=== PATIENT | female | born 1980 | race Caucasian/White ===

== ENCOUNTER 2018-07-22 16:44 | Inpatient (IN) | payer BC ==
[2018-07-22] MEDS ORDERED: Lidocaine 1%* 5 ML VIAL ONE (16:56)
[2018-07-22] MEDS ORDERED: Buffered Lidocaine 1% SYRIN* 1 ML/SYRINGE INTRADERM ONE (17:08)
[2018-07-22] MEDS ORDERED: Lactated Ringers 1000 ML Bag* 1,000 ML IV ONE ×2 (17:08→18:28)
--- NOTE | 2018-07-22 17:19 | HP ---
General Information - Reason for Visit Term trial of labor with her survey engineer Leona Felder CNM. According to the patient and her upper cutter machine this has been uncomplicated. She has been in spontaneous labor since yesterday early evening with SROM at 2 am today, she advanced to 9cm dilation several hours ago, no change since. Due to discomfort in labor along with protraction vs arrest disorder the patient and her upper cutter machine decided to seek care at the hospital. - General Information Maternal Age: 38 Grav: 1 Para: 0 SAB: 0 IEA: 0 Estimated Due Date: 07/30/18 Determined By: LMP Maternal Blood Type and Rh: O Positive - Results this Serology/RPR Result: Non-Reactive Rubella Result: Immune HBsAg Result: Negative HIV Result: Negative GBS Culture Result: Negative Past Medical History Delivery History: See Records Pertinent Past Medical History: See Records - No medical problems Pertinent Past Surgical History: See Records Pertinent Family History: See Records - Antepartal Records Antepartal Records: Reviewed, Uncomplicated Review of Systems Constitutional: Uncomfortable CV Complaint: No Respiratory: Shortness of Breath: No Gastrointestinal: No Nausea/Vomiting, Normal Bowel Movement Genitourinary: No Dysuria, No Bleeding Musculoskeletal: No Complaint, No Epigastric Pain, Contractions - contractions are Q 2-3 minutes apart Neurological: No Headache, No Visual Changes Movement: Normal Exam Allergies/Adverse Reactions: Allergies No Known Allergies Allergy (Verified 07/22/18 17:22) Temp 97.6 BP 136/90 P 110 RR 18 POx 100% RA - Measurements Height: 5 ft 2 in Weight: 141 lb Weight in lbs: [phone] Body Mass Index (BMI): 25.7 - Exam Breast: Breast Exam Deferred CVA: No CVA Tenderness Extremities: No Edema Heart: Normal Rhythm/Heart Sounds HEENT: No Significant Findings Lungs: Clear Bilaterally Rectal: Rectal Exam Deferred Reflexes: DTR 2+ Thyroid: No Thyromegaly - Abdominal Exam Abdomen Exam: Non-Tender, Fundal Height Consistent with Dates Targeted Exam Findings See L&D Outpatient Visit Provider Note for Findings: N/A Cervical Exam: Rim, Anterior Lip Effacement: Thin Station: 0 Presenting Part: Vertex - Asynclitic presentation towards maternal left side, moderate to large caput noted. Membrane Status: SROM Bleeding/Discharge: None EFM Findings - External Monitor Findings Baseline Heart Rate: 140 External Monitor Findings: Accelerations Present, No Pattern of Variable or Late Decelerations Contractions: Regular Assessment/Plan - Assessment Term in labor with cephalic asynclitic presentation and caput. - Plan Plan: IV Hydration, Admit - Anticipate Vaginal Delivery - epidural analgesia desired by patient. - Date/Time of Admission Date of Admission: 07/22/18 Time of Admission: 17:30
[2018-07-22 17:23] LABS: Hematocrit 36 % (35-47); Mean Corpuscular HGB Conc 34 g/dL (31-36); Mean Corpuscular Hemoglobin 27 pg (27-31); Mean Corpuscular Volume 80 fL (80-97); Mean Platelet Volume 7.2 fL (7.4-10.4); Platelet Count 499 10^3/uL (150-450); Red Blood Count 4.46 10^6 /uL (3.70-4.87); Red Cell Distribution Width 14 % (10-15); White Blood Count 34.6 10^3/uL (3.5-10.8)
[2018-07-22] MEDS ORDERED: OBEPIDURAL* 250 ML EPIDURAL ONE (17:41)
[2018-07-22 17:54] LABS: ABS Lymphocytes 0.8 10^3/ul (1.0-4.8); ABS Monocytes 1.6 10^3/ul (0-0.8); ABS Neutrophils 32.1 10^3/ul (1.5-7.7); Lymphocyte % 2.3 %
[2018-07-22] MEDS ORDERED: Lactated Ringers 1000 ML Bag* 1,000 ML IV SCH ×2 (18:00→19:00)
[2018-07-22] MEDS ORDERED: Famotidine TAB* 20 MG PO PRN (18:28)
[2018-07-22] MEDS ORDERED: Sodium Citrate/Citric Acid* 15 ML UDC PO PRN (18:28)
[2018-07-22] MEDS ORDERED: Phenylephrine 40 MCG/ML SYRINGE IV PUSH PRN ×2 (18:28)
[2018-07-22] MEDS ORDERED: OBEPIDURAL* 250 ML EPIDURAL SCH (19:00)
[2018-07-22] MEDS ORDERED: Oxytocin in LR* 20 UNITS/1,000 ML BAG IVPB ONE (20:05)
[2018-07-22] MEDS ORDERED: Oxytocin in LR* 20 UNITS/1,000 ML BAG IVPB SCH (21:00)
[2018-07-23] MEDS ORDERED: ceFOXitin 2 GM IVPREMIX* 2 GM/50 ML BAG ONE (07:16)
[2018-07-23] MEDS ORDERED: ceFOXitin 2 GM IVPREMIX* 2 GM/50 ML BAG IVPB ONE (07:19)
[2018-07-23] MEDS ORDERED: Morphine PF AMP (0.5MG/ML)* 5 MG/10 ML AMP ONE (07:31)
[2018-07-23] MEDS ORDERED: fentaNYL* 50 MCG/ML 2 ML VIAL (100 MCG VIAL) ONE (07:31)
[2018-07-23] MEDS ORDERED: Ondansetron INJ* 2 MG/ML VIAL ONE (07:36)
[2018-07-23] MEDS ORDERED: Phenylephrine 40 MCG/ML SYRINGE ONE ×2 (07:37→08:37)
[2018-07-23] MEDS ORDERED: OXYTOCIN* 10 UNITS/ML 1 ML VIAL ONE (08:17)
[2018-07-23] MEDS ORDERED: Nalbuphine* 10 MG/ML 1 ML VIAL IV PRN (08:28)
[2018-07-23] MEDS ORDERED: Naloxone* 0.4 MG/ML 1 ML VIAL IV PRN ×2 (08:28→08:30)
[2018-07-23] MEDS ORDERED: Naloxone* 2 MG in NS 0.9% 250 ML* 250 ML IV PRN (08:28)
[2018-07-23] MEDS ORDERED: Ketorolac INJ* 30 MG/ML 1 ML VIAL IV PRN (08:28)
[2018-07-23] MEDS ORDERED: Metoclopramide IV* 5 MG/ML 2 ML VIAL IV PRN (08:28)
[2018-07-23] MEDS ORDERED: oxyCODONE TAB* 5 MG TAB PO PRN ×2 (08:28→08:30)
[2018-07-23] MEDS ORDERED: Ondansetron INJ* 2 MG/ML VIAL IV PRN (08:28)
[2018-07-23] MEDS ORDERED: Acetaminophen TAB* 325 MG PO PRN ×2 (08:28→08:30)
[2018-07-23] MEDS ORDERED: fentaNYL* 50 MCG/ML 2 ML VIAL (100 MCG VIAL) IV PRN (08:30)
[2018-07-23] MEDS ORDERED: oxyCODONE/Acetamin 5/325 MG* TAB PO PRN ×2 (09:08)
[2018-07-23] MEDS ORDERED: Glycerin ADULT SUPP PR PRN (09:08)
[2018-07-23] MEDS ORDERED: Witch Hazel PAD* JAR TOPICAL PRN (09:08)
[2018-07-23] MEDS ORDERED: Zolpidem TAB* 5 MG PO PRN (09:08)
[2018-07-23] MEDS ORDERED: Lactated Ringers 1000 ML Bag* 1,000 ML IV SCH (10:00)
[2018-07-23] MEDS: Simethicone TAB* 80 MG TAB.CHEW PO SCH ×3 (16:27→20:41)
[2018-07-23] MEDS: Docusate CAP* 100 MG PO SCH (16:27)
[2018-07-23] MEDS: Dibucaine 1% 28.35 GM TUBE PR PRN (17:09)
[2018-07-24] MEDS: Docusate CAP* 100 MG PO SCH ×4 (03:19→20:50)
[2018-07-24] MEDS: Acetaminophen TAB* 325 MG PO PRN ×4 (06:08→19:45)
[2018-07-24 07:15] LABS: ABS Lymphocytes 1.5 10^3/ul (1.0-4.8); ABS Monocytes 1.4 10^3/ul (0-0.8); Hematocrit 24 % (35-47); Hemoglobin 8.1 g/dL (12.0-16.0); Lymphocyte % 7.1 %; Mean Corpuscular HGB Conc 33 g/dL (31-36); Mean Corpuscular Hemoglobin 27 pg (27-31); Mean Corpuscular Volume 81 fL (80-97); Mean Platelet Volume 7.2 fL (7.4-10.4); Platelet Count 332 10^3/uL (150-450); Red Blood Count 3.03 10^6 /uL (3.70-4.87); Red Cell Distribution Width 14 % (10-15); White Blood Count 20.9 10^3/uL (3.5-10.8)
[2018-07-24] MEDS: Ferrous Gluconate TAB* 324 MG TAB PO SCH ×2 (08:08→20:50)
[2018-07-24] MEDS: Simethicone TAB* 80 MG TAB.CHEW PO SCH ×4 (08:08→22:40)
--- NOTE | 2018-07-24 11:10 | OP ---
OPERATIVE REPORT: DATE OF OPERATION: 07/23/18 DATE OF : 76 SURGEON: Hema Vann MD. CARE MGR: Dr. Black. ANESTHESIA: Spinal. PRE-OP DIAGNOSIS: at 39 weeks with arrest of descent in labor. POST-OP DIAGNOSIS: at 39 weeks with arrest of descent in labor. OPERATIVE PROCEDURE: Primary low transverse section. ESTIMATED BLOOD LOSS: 600 cc. SPECIMENS SENT TO PATHOLOGY: Cord blood. FLUIDS: She received 1000 cc of IV crystalloid fluid. URINE OUTPUT: 100 cc of clear urine. FINDINGS: Delivery of a viable female infant in transverse arrest with a weight of 7 pounds 6 ounces with Apgars of 9 and 9. The placenta was grossly intact with a 3- vessel cord noted. The uterus, a dnexa, bowel, and bladder were all within normal limits and there were no complications. DESCRIPTION OF PROCEDURE: The patient was taken to the operating room, where she was identified. Kuldeep juarez was placed on the operating table where a spinal anesthetic was obtained without difficulty. She w as placed in a supine position with a leftward tilt, prepped and draped in a normal sterile fashion. A Pfannenstiel skin incision was made with a knife and carried through to the underlying layer of fa scia. The fascia was then nicked in the midline and extended laterally with curved Davenport scissors. T he fascia was then grasped superiorly and inferiorly with Daniel clamps and dissected off sharply fro m the rectus muscle. The rectus muscle was in the midline bluntly. The peritoneum was kailey ntified, grasped with pickups, and entered sharply with Metzenbaum scissors and extended superiorly a nd inferiorly sharply. A bladder blade was inserted into the patient's abdomen and bladder flap was created using Metzenbaum scissors, over which the bladder blade was then reinserted. A low transvers e uterine incision was made with a knife, extended laterally with bandage scissors. The 's hea d was then grasped and delivered atraumatically. The rest of the 's body was then delivered. The cord was clamped and cut and the infant was handed off to awaiting interactive digital media specialist. Cord bloods were obtained. The placenta was removed manually. The uterus was then exteriorized and cleared of all c lot and debris using moist laparotomy sponges. The uterine incision was then closed using 0 Polysorb suture in a running locked fashion with a second imbricating layer of 0 Polysorb suture with good hem ostasis noted. At this point, the uterus was returned to the patient's abdomen. The gutters were th en cleared of all clot and debris using moist laparotomy sponges. The sponges were removed from the p atient's abdomen and the peritoneum was then closed using 3-0 Polysorb suture in a running fashion. The fascia was closed using 0 Polysorb suture in a running fashion and the skin was closed with 4-0 M onocryl subcuticular stitch. The patient tolerated the procedure well. Sponge, lap and needle count s were correct x2. She was then transferred to the recovery room area in stable condition. [id number]/[facility] #: [id number]
[2018-07-24] MEDS: Dibucaine 1% 28.35 GM TUBE PR PRN (19:46)
[2018-07-24] MEDS: Ibuprofen TAB* 600 MG PO PRN (21:32)
[2018-07-25] MEDS: Acetaminophen TAB* 325 MG PO PRN ×2 (06:20→11:42)
[2018-07-25] MEDS: Simethicone TAB* 80 MG TAB.CHEW PO SCH (09:06)
[2018-07-25] MEDS: Docusate CAP* 100 MG PO SCH (09:26)
[2018-07-25] MEDS: Ferrous Gluconate TAB* 324 MG TAB PO SCH (09:27)
[2018-07-25 09:59] VITALS: BP 112/62
[2018-07-25] MEDS: Ibuprofen TAB* 600 MG PO PRN (11:42)
== END 2018-07-25 12:35 | disposition home or self-care (01) | DRG 540 ==
LOC: MCHOBOUT 16:44 → MCHOB 16:59
PROVIDERS: ADMIT Obstetrics & Gynecology; ATTEND Obstetrics & Gynecology
PROC: 4A1HXCZ Monitoring of Products of Conception, Cardiac Rate, External Approach (ICD-10-PCS; 2018-07-23)
PROC: 10D00Z1 Extraction of Products of Conception, Low, Open Approach (ICD-10-PCS; principal; 2018-07-23 07:47)
DX: O62.1 Secondary uterine inertia (principal); Z3A.39 39 weeks gestation of pregnancy; Z37.0 Single live birth; O90.81 Anemia of the puerperium
CPT/HCPCS: 36415; 85025; 86850; 86900; 86901; A9270-GY; J0694; J2300; J2405; J2590; J3010

== ENCOUNTER 2023-07-10 23:38 | Inpatient (IN) ==
[2023-07-11] MEDS ORDERED: Prochlorperazine 5 mg/ml 2 ml VIAL (10 mg) IV PRN (01:45)
[2023-07-11] MEDS ORDERED: Nalbuphine 10 MG/ML 1 ML VIAL IV PRN (01:45)
[2023-07-11] MEDS ORDERED: Lidocaine 1% VIAL 10 MG/ML 30 ML VIAL INJ PRN (01:45)
[2023-07-11] MEDS: Lactated Ringers 1000 ml BAG 1,000 ML IV ONE ×2 (01:46→12:35)
[2023-07-11] MEDS ORDERED: fentaNYL 100 mcg/2 ml 50 MCG/ML VIAL ONE ×3 (01:58→13:21)
[2023-07-11 02:04] LABS: ABS Monocytes 0.9 10^3/uL (0.0-0.9); ABS Neutrophils 12.2 10^3/uL (1.5-7.6); ABS Nucleated RBC 0.02 10^3/ul; Eosinophil % 0.2 %; Hematocrit 35.7 % (35-45); Hemoglobin 12.5 g/dL (11.5-14.3); Lymphocyte % 13.2 %; Mean Corpuscular Hemoglobin 30.3 pg (27-33); Mean Corpuscular Hgb Conc 35.1 g/dL (31-36); Mean Corpuscular Volume 86.4 fL (80-97); Mean Platelet Volume 7.3 fL (7.5-11.2); Nucleated Red Blood Cells % 0.1 %/100WBC (0.0-0.8); Platelet Count 329 10^3/uL (150-450); Red Blood Count 4.13 10^6/uL (3.63-4.92); Red Cell Distribution Width 14.4 % (12-17); White Blood Count 15.2 10^3/uL (3.8-11.8)
[2023-07-11] MEDS: OBEPIDURAL (200 ML) 200 ML EPIDURAL SCH (02:26)
[2023-07-11] MEDS ORDERED: Phenylephrine 40 mcg/mL 10mL (400mcg) SYRINGE IV PUSH PRN ×2 (02:41)
[2023-07-11] MEDS: Lactated Ringers 1000 ml BAG 1,000 ML IV SCH (02:45)
[2023-07-11 04:28] LABS: Urine Appearance Turbid; Urine Bilirubin Negative (Negative); Urine Blood 3+ (Negative); Urine Color Yellow; Urine Glucose Negative (Negative); Urine Ketones 2+ (Negative); Urine Nitrite Negative (Negative); Urine Protein 2+ (>=100 mg/dL) (Negative); Urine Specific Gravity 1.029 (1.002-1.030); Urine Urobilinogen Negative (Negative)
[2023-07-11 04:29] LABS: Urine Bacteria Absent /HPF (Absent); Urine Red Blood Cell Trace(0-2/hpf) /HPF (0-Trace); Urine White Blood Cell Trace(0-5/hpf) /HPF (0-Trace)
[2023-07-11 04:44] LABS: Urine Benzodiazepine Screen None Detected (None Detect); Urine Cannabinoids Screen None Detected (None Detect); Urine Opiates Screen None Detected (None Detect)
[2023-07-11] MEDS: OBEPIDURAL (200 ML) 200 ML EPIDURAL ONE (05:47)
[2023-07-11] MEDS: Lidocaine 1.5% EPI 1:200,000 30 ML SDV ONE (05:48)
[2023-07-11] MEDS: Ondansetron 4 mg VIAL 2 MG/ML 2 ml VIAL IV PRN (11:05)
[2023-07-11] MEDS ORDERED: ceFAZolin 2 GM in NS PREMIX 2 GM/100 ML BAG IVPB ONE (12:11)
[2023-07-11] MEDS: Sodium Citrate/Citric Acid LIQ 15 ML UDC PO PRN (12:36)
[2023-07-11] MEDS ORDERED: Phenylephrine 40 mcg/mL 10mL (400mcg) SYRINGE ONE ×2 (12:46→13:43)
[2023-07-11] MEDS ORDERED: Oxytocin 10 UNITS/ML 1 ML VIAL ONE ×2 (12:46→14:18)
[2023-07-11] MEDS ORDERED: Scopolamine 1 mg/72hr PATCH ONE (12:46)
[2023-07-11] MEDS ORDERED: Morphine PF AMP (0.5MG/ML) 5 MG/10 ML AMP ONE (12:47)
[2023-07-11] MEDS ORDERED: Chloroprocaine 3% 20 ml VIAL ONE (12:58)
[2023-07-11] MEDS ORDERED: Lidocaine 2% w/ EPI 1:200,000 MPF 20 ML SDV VIAL ONE (12:58)
[2023-07-11] MEDS ORDERED: Ondansetron 4 mg VIAL 2 MG/ML 2 ml VIAL ONE (13:18)
[2023-07-11] MEDS ORDERED: Acetaminophen IV 1 GM/100ML 1,000 MG/100 ML BAG IV ONE (13:34)
[2023-07-11] MEDS ORDERED: Acetaminophen IV 1 GM/100ML 1,000 MG/100 ML BAG IV PRN (13:42)
[2023-07-11] MEDS ORDERED: Naloxone 0.4 mg VIAL 0.4 mg/ml 1 ml VIAL IV PUSH PRN (13:42)
[2023-07-11] MEDS ORDERED: Ondansetron 4 mg VIAL 2 MG/ML 2 ml VIAL IV PRN (13:42)
[2023-07-11] MEDS ORDERED: Metoclopramide 5 MG/ML VIAL (10 mg) IV PRN (13:42)
[2023-07-11] MEDS ORDERED: fentaNYL 100 mcg/2 ml 50 MCG/ML VIAL IV PRN (13:48)
[2023-07-11] MEDS ORDERED: Naloxone 0.4 mg VIAL 0.4 mg/ml 1 ml VIAL IV PRN (13:48)
[2023-07-11] MEDS ORDERED: Glycerin ADULT 2.4 gm SUPP PR PRN (14:29)
[2023-07-11] MEDS ORDERED: Witch Hazel PAD JAR TOPICAL PRN (14:29)
[2023-07-11] MEDS ORDERED: Dibucaine 1% OINT 28.35 GM TUBE PR PRN (14:29)
[2023-07-11] MEDS ORDERED: Lactated Ringers 1000 ml BAG 1,000 ML IV SCH (15:00)
[2023-07-11] MEDS: Oxytocin in LR 20,000 MILLI.UNIT/1,000 ML BAG IV SCH (18:50)
[2023-07-11] MEDS: ceFAZolin 2 GM/50 ML BAG IV ONE (18:59)
[2023-07-11] MEDS: Buffered Lidocaine 1% SYRIN 1 ml INTRADERM ONE (20:15)
[2023-07-12 06:34] LABS: ABS Lymphocytes 1.9 10^3/uL (1.0-4.8); ABS Monocytes 1.2 10^3/uL (0.0-0.9); ABS Neutrophils 13.2 10^3/uL (1.5-7.6); Eosinophil % 0.2 %; Hematocrit 28.2 % (35-45); Hemoglobin 9.8 g/dL (11.5-14.3); Lymphocyte % 11.4 %; Mean Corpuscular Hemoglobin 30.6 pg (27-33); Mean Corpuscular Hgb Conc 34.5 g/dL (31-36); Mean Corpuscular Volume 88.5 fL (80-97); Mean Platelet Volume 7.1 fL (7.5-11.2); Platelet Count 249 10^3/uL (150-450); Red Blood Count 3.19 10^6/uL (3.63-4.92); Red Cell Distribution Width 14.7 % (12-17); White Blood Count 16.3 10^3/uL (3.8-11.8)
[2023-07-13 08:24] VITALS: BP 102/57
== END 2023-07-13 14:33 | disposition home or self-care (01) | DRG 540 ==
LOC: MCHOBOUT 23:38 → MCHOB 07-11 01:07
PROVIDERS: ADMIT Obstetrics & Gynecology; ATTEND Obstetrics & Gynecology